=== PATIENT | female | born 1990 | race African-American/Black ===

== ENCOUNTER 2016-08-24 14:49 | Emergency (ER) | payer OTHER ==
[~2016-08-24] VITALS: Ht 152.4 cm; Wt 81.0 kg
[~2016-08-24 14:49] MED LIST: LURA40 PO; PARO20TA24 PO
[2016-08-24] MEDS ORDERED: ARIP10TA14 PO (14:56)
[2016-08-24] MEDS ORDERED: LORATADINE 10 MG TABLET PO ONE (17:30)
[2016-08-24 18:15] VITALS: BP 128/87
== END 2016-08-24 18:41 | disposition home or self-care (01) ==
LOC: EMS 14:51
DX: B09 Unspecified viral infection characterized by skin and mucous membrane lesions (principal); F17.210 Nicotine dependence, cigarettes, uncomplicated
CPT/HCPCS: 99283

== ENCOUNTER 2017-03-16 12:33 | Emergency (ER) | payer OTHER ==
[~2017-03-16] VITALS: Ht 152.4 cm; Wt 81.8 kg
[~2017-03-16 12:33] MED LIST changes: +ARIP10TA8 PO; -LURA40 PO; -PARO20TA24 PO
[2017-03-16] MEDS ORDERED: LURA40 PO (12:57)
[2017-03-16 15:18] VITALS: BP 138/80
[2017-03-16] MEDS ORDERED: IBUPROFEN 800 MG TABLET PO ONE (15:30)
== END 2017-03-16 16:00 | disposition home or self-care (01) ==
LOC: EMS 12:35
DX: J40 Bronchitis, not specified as acute or chronic (principal); J02.9 Acute pharyngitis, unspecified; F17.210 Nicotine dependence, cigarettes, uncomplicated; Z91.010 Allergy to peanuts
CPT/HCPCS: 99283

== ENCOUNTER 2017-03-25 13:03 | Emergency (ER) | payer OTHER ==
[~2017-03-25] VITALS: Ht 152.4 cm; Wt 80.9 kg
[~2017-03-25 13:03] MED LIST changes: -ARIP10TA8 PO; +LURA40 PO
[2017-03-25] MEDS ORDERED: PARO10TA89 PO (13:53)
[2017-03-25 14:23] LABS: BASOPHILS % (AUTO) 0.4 % (0.0-2.0); EOSINOPHILS % (AUTO) 0.6 % (1.0-6.0); HEMATOCRIT 37.2 % (36-46); HEMOGLOBIN 12.3 g/dL (12.0-16.0); LYMPHOCYTES # (AUTO) 1.6 K/uL (1.0-4.8); MEAN CORPUSCULAR HEMOGLOBIN 28.4 pg (26.0-34.0); MEAN CORPUSCULAR HGB CONC 33.1 G/dL (31.0-37.0); MEAN CORPUSCULAR VOLUME 86 fL (80-100); MONOCYTES # (AUTO) 0.6 K/uL (0.1-1.0); MONOCYTES % (AUTO) 5.9 % (2.0-9.0); NEUTROPHILS # (AUTO) 7.8 K/uL (1.8-7.7); NEUTROPHILS % (AUTO) 77.1 % (40.0-70.0); PLATELET COUNT (AUTO) 320 K/uL (150-450); RED BLOOD CELL COUNT(AUTO) 4.33 MIL/uL (4.00-5.20); RED CELL DISTRIBUTION WIDTH 13.7 % (11.5-14.5); WHITE BLOOD COUNT (AUTO) 10.1 K/uL (4.5-11.0)
[2017-03-25 14:33] LABS: ANION GAP 9 mmol/L (8-16); CALCIUM, TOTAL 9.1 mg/dL (8.8-10.5); CARBON DIOXIDE 29 mmol/L (22-29); CHLORIDE 106 mmol/L (98-107); CREATININE 1.02 mg/dL (0.60-1.30); GLOMERULAR FILTR. RATE CALC > 60 mL/min (>60); POTASSIUM 3.7 mmol/L (3.5-5.1); SODIUM SERUM 144 mmol/L (136-145); UREA NITROGEN, BLOOD 17 mg/dL (7-18)
[2017-03-25 14:40] LABS: ALANINE AMINOTRANSFERASE 25 U/L (12-78); ALBUMIN 3.8 g/dL (3.4-5.0); ASPARTATE AMINOTRANSFERASE 23 U/L (15-37); BILIRUBIN,TOTAL 0.3 mg/dL (0.1-1.0); TOTAL PROTEIN, SERUM 7.7 g/dL (6.4-8.2)
[2017-03-25 19:06] VITALS: BP 130/89
== END 2017-03-25 19:36 | disposition home or self-care (01) ==
LOC: EMS 13:04
DX: F43.22 Adjustment disorder with anxiety (principal); F32.9 Major depressive disorder, single episode, unspecified; J40 Bronchitis, not specified as acute or chronic; F17.210 Nicotine dependence, cigarettes, uncomplicated; Z91.010 Allergy to peanuts
CPT/HCPCS: 36415; 80053; 80307; 84703; 85025; 99285; 99406; G0480

== ENCOUNTER 2017-07-12 09:01 | Emergency (ER) | payer OTHER ==
[~2017-07-12] VITALS: Ht 152.4 cm; Wt 81.8 kg
[~2017-07-12 09:01] MED LIST changes: +PARO10TA89 PO
[2017-07-12] MEDS ORDERED: IBUPROFEN 800 MG TABLET PO ONE (10:15)
[2017-07-12 11:37] VITALS: BP 140/65
== END 2017-07-12 11:39 | disposition home or self-care (01) ==
LOC: EMS 09:03
DX: S60.221A Contusion of right hand, initial encounter (principal); F17.210 Nicotine dependence, cigarettes, uncomplicated; Z91.018 Allergy to other foods; X58.XXXA Exposure to other specified factors, initial encounter; Y93.89 Activity, other specified; Y92.89 Other specified places as the place of occurrence of the external cause; Y99.8 Other external cause status
CPT/HCPCS: 99284

== ENCOUNTER 2018-04-05 13:49 | Emergency (ER) | payer OTHER ==
[~2018-04-05] VITALS: Ht 152.4 cm; Wt 80.9 kg
[~2018-04-05 13:49] MED LIST changes: -PARO10TA89 PO
[2018-04-05 15:15] VITALS: BP 147/87
== END 2018-04-05 15:16 | disposition home or self-care (01) ==
LOC: EMS 13:52
DX: L03.011 Cellulitis of right finger (principal); F41.9 Anxiety disorder, unspecified; F32.9 Major depressive disorder, single episode, unspecified; J40 Bronchitis, not specified as acute or chronic; F17.210 Nicotine dependence, cigarettes, uncomplicated; Z91.040 Latex allergy status

== ENCOUNTER 2018-12-25 11:07 | Emergency (ER) | payer OTHER ==
[~2018-12-25] VITALS: Ht 152.4 cm; Wt 80.0 kg
[2018-12-25] MEDS ORDERED: GABA-529 PO (11:33)
[2018-12-25] MEDS ORDERED: ACETAMINOPHEN 500 MG TABLET PO ONE (11:45)
[2018-12-25] MEDS ORDERED: GABA-531 PO (11:45)
[2018-12-25 12:00] LABS: BASOPHILS % (AUTO) 0.5 % (0.0-2.0); EOSINOPHILS % (AUTO) 1.2 % (1.0-6.0); HEMOGLOBIN 12.8 g/dL (12.0-16.0); LYMPHOCYTES # (AUTO) 1.7 K/uL (1.0-4.8); LYMPHOCYTES % (AUTO) 34.2 % (22.0-44.0); MEAN CORPUSCULAR VOLUME 88 fL (80-100); MONOCYTES # (AUTO) 0.5 K/uL (0.1-1.0); MONOCYTES % (AUTO) 9.6 % (2.0-9.0); NEUTROPHILS # (AUTO) 2.8 K/uL (1.8-7.7); NEUTROPHILS % (AUTO) 54.5 % (40.0-70.0); PLATELET COUNT (AUTO) 287 K/uL (150-450); RED BLOOD CELL COUNT(AUTO) 4.58 MIL/uL (4.00-5.20); RED CELL DISTRIBUTION WIDTH 13.4 % (11.5-14.5)
[2018-12-25 12:09] LABS: ANION GAP 9 mmol/L (8-16); CALCIUM, TOTAL 9.3 mg/dL (8.8-10.5); CARBON DIOXIDE 26 mmol/L (22-29); CHLORIDE 107 mmol/L (98-107); GLOMERULAR FILTR. RATE CALC > 60 mL/min (>60); GLUCOSE,RANDOM 96 mg/dL (70-110); POTASSIUM 3.9 mmol/L (3.5-5.1); SODIUM SERUM 142 mmol/L (136-145); UREA NITROGEN, BLOOD 20 mg/dL (7-18)
[2018-12-25 12:54] VITALS: BP 122/77
== END 2018-12-25 13:10 | disposition home or self-care (01) ==
LOC: EMS 11:08
DX: J40 Bronchitis, not specified as acute or chronic (principal); M79.10 Myalgia, unspecified site; F41.9 Anxiety disorder, unspecified; F32.9 Major depressive disorder, single episode, unspecified; F17.210 Nicotine dependence, cigarettes, uncomplicated; Z91.018 Allergy to other foods
CPT/HCPCS: 85379; 93005; 99406